=== PATIENT | male | born 1975 | race African-American/Black ===

== ENCOUNTER 2017-12-09 04:24 | Emergency (ER) | payer SELFPAY ==
[~2017-12-09] VITALS: Ht 182.9 cm; Wt 140.3 kg
[~2017-12-09 04:24] MED LIST: SULF1TAB47 PO; Z.0.NO CURRENT MEDS
[2017-12-09 04:26] VITALS: BP 150/106; PULSE 91; RESP 16; TEMP 98.5; O2SAT 97
--- NOTE | 2017-12-09 05:33 | PD ---
HPI Chief Complaint: Pain: Acute or Chronic Time Seen by Provider: 05:31 Travel History International Travel<30 days: No Contact w/Intl Traveler<30days: No Traveled to known affect area: No History of Present Illness HPI 42-year-old male presents to the emergency department for a few days of right testicular swelling. Patient denies scrotal edema. Patient denies trauma. Patient's had no fever chills. Patient does not report marked tenderness to the area but intermittently has experienced 9/10 pain. Patient states he does do repetitive lifting at his place of work but did not does not identify specific injury. Patient's had no nausea no vomiting and no abdominal pain. Patient also denies dysuria frequency urgency or penile discharge. PFSH Past Medical History Medical History: Denies Significant Hx Arthritis: No Asthma: No Autoimmune Disease: No Blood Disorders: No Anxiety: No Depression: No Heart Rhythm Problems: No Cancer: No Cardiovascular Problems: No High Cholesterol: No Chemotherapy: No Chest Pain: No Congestive Heart Failure: No COPD: No Cerebrovascular Accident: No Diabetes: No Diminished Hearing: No Endocrine: No GERD: No Glaucoma: No Genitourinary: No Headaches: No Hepatitis: No Hiatal Hernia: No Hypertension: No Immune Disorder: No Kidney Stones: No Musculoskeletal: No Neurologic: No Psychiatric: No Respiratory: No Myocardial Infarction: No Radiation Therapy: No Renal Failure: No Seizures: No Sickle Cell Disease: No Sleep Apnea: No Thyroid Disease: No Ulcer: No Past Surgical History Abdominal Surgery: No AICD: No Appendectomy: Yes Cardiac Surgery: No Ear Surgery: No Endocrine Surgery: No Eye Surgery: No Genitourinary Surgery: No Gynecologic Surgery: No Joint Replacement: No Oral Surgery: No Pacemaker: No Thoracic Surgery: No Social History Alcohol Use: Yes (FIFTH OF ALCOHOL PER WEEK) Tobacco Use: Yes (1 PPD) Substance Use: No Allergies-Medications (Allergen,Severity, Reaction): Coded Allergies: No Known Allergies (Verified Allergy, Mild, 12/09/17) Reported Meds & Prescriptions Reported Meds & Active Scripts Active Ibuprofen 600 Mg Tab 600 Mg PO Q8HR PRN 10 Days Physical Exam Narrative GENERAL: Well-developed well-nourished male in no acute distress no respiratory distress SKIN: Warm and dry. HEAD: Normocephalic. EYES: No scleral icterus. No injection or drainage. NECK: Supple, trachea midline. No JVD or lymphadenopathy. CARDIOVASCULAR: Regular rate and rhythm without murmurs, gallops, or rubs. RESPIRATORY: Breath sounds equal bilaterally. No accessory muscle use. GASTROINTESTINAL: Abdomen soft, non-tender, nondistended. : Bilaterally descended testicles with prominent scrotum right testicle palpable but appears slightly enlarged no discernible hernia on inguinal exam, no penile discharge. MUSCULOSKELETAL: No cyanosis, or edema. BACK: Nontender without obvious deformity. No CVA tenderness. Data Data Last Documented VS Vital Signs Date Time Temp Pulse Resp B/P (MAP) Pulse Ox O2 Delivery O2 Flow Rate FiO2 12/09/17 10:10 12/09/17 08:51 67 17 98 Room Air 12/09/17 04:26 98.5 Orders Orders Basic Metabolic Panel (Bmp) (12/09/17 05:31) Complete Blood Count With Diff (12/09/17 05:31) Ua Includes Microscopic (12/09/17 05:31) Us Testicles W Doppler (12/09/17 05:31) Iv Access Insert/Monitor (12/09/17 05:31) Ketorolac Inj (Toradol Inj) (12/09/17 05:45) Ondansetron Inj (Zofran Inj) (12/09/17 05:45) Sodium Chloride 0.9% Flush (Ns Flush) (12/09/17 05:45) Electrocardiogram (12/09/17 ) Ed Discharge Order (12/09/17 09:25) Ibuprofen (Motrin) (12/09/17 10:00) Labs Laboratory Tests Test 12/09/17 05:40 12/09/17 05:50 12/09/17 06:00 Blood Urea Nitrogen 10 MG/DL Creatinine 0.79 MG/DL Random Glucose 97 MG/DL Calcium Level 8.4 MG/DL Sodium Level 137 MEQ/L Potassium Level 5.4 MEQ/L Chloride Level 108 MEQ/L Carbon Dioxide Level 24.3 MEQ/L Anion Gap 5 MEQ/L Estimat Glomerular Filtration Rate 129 ML/MIN Urine Color YELLOW Urine Turbidity CLEAR Urine pH 5.5 Urine Specific [place] 1.016 Urine Protein NEG mg/dL Urine Glucose (UA) NEG mg/dL Urine Ketones NEG mg/dL Urine Occult Blood TRACE Urine Nitrite NEG Urine Bilirubin NEG Urine Urobilinogen LESS THAN 2.0 MG/DL Urine Leukocyte Esterase NEG Urine RBC 3 /hpf Urine WBC 3 /hpf Urine Mucus FEW /lpf White Blood Count 7.4 TH/MM3 Red Blood Count 5.51 MIL/MM3 Hemoglobin 15.2 GM/DL Hematocrit 43.5 % Mean Corpuscular Volume 79.0 FL Mean Corpuscular Hemoglobin 27.6 PG Mean Corpuscular Hemoglobin Concent 35.0 % Red Cell Distribution Width 14.8 % Platelet Count 253 TH/MM3 Mean Platelet Volume 8.0 FL Neutrophils (%) (Auto) 62.7 % Lymphocytes (%) (Auto) 23.2 % Monocytes (%) (Auto) 11.1 % Eosinophils (%) (Auto) 2.6 % Basophils (%) (Auto) 0.4 % Neutrophils # (Auto) 4.6 TH/MM3 Lymphocytes # (Auto) 1.7 TH/MM3 Monocytes # (Auto) 0.8 TH/MM3 Eosinophils # (Auto) 0.2 TH/MM3 Basophils # (Auto) 0.0 TH/MM3 CBC Comment DIFF FINAL Differential Comment MDM Medical Decision Making Medical Screen Exam Complete: Yes Emergency Medical Condition: Yes Medical Record Reviewed: Yes Differential Diagnosis Testicular mass, scrotal mass, epididymoorchitis, hydrocele, varicocele, torsion , hernia Narrative Course Specimens collected for urinalysis and testicular ultrasound ordered Patient waiting for ultrasound with on-call oral tech reportedly to arrival at 7 AM At 7 AM care signed over to Dr. Hackett Scripts Ibuprofen (Ibuprofen) 600 Mg Tab 600 MG PO Q8HR Y for PAIN SCALE 6 TO 10 for 10 Days, TAB 0 Refills Prov: Bandar Jarvis MD 12/09/17 Sonia Leblanc MD Dec 09, 2017 05:33
[2017-12-09] MEDS ORDERED: ONDANSETRON HCL 4 MG/2 ML VIAL IVP ONE (05:45)
[2017-12-09] MEDS ORDERED: KETOROLAC TROMETHAMINE 30 MG/ML (IVP) VIAL IVP ONE (05:45)
[2017-12-09] MEDS ORDERED: SODIUM CHLORIDE 0.9% FLUSH 10 ML FLUSH IVF PRN (05:45)
[2017-12-09 06:18] LABS: AUTOMATED NEUTROPHIL # 4.6 TH/MM3 (1.8-7.7); BASOPHIL % 0.4 % (0.0-2.0); EOSINOPHIL # 0.2 TH/MM3 (0-0.4); EOSINOPHIL % 2.6 % (0.0-4.0); HEMATOCRIT 43.5 % (39.0-51.0); HEMOGLOBIN 15.2 GM/DL (13.0-17.0); LYMPH % 23.2 % (9.0-44.0); LYMPHOCYTE # 1.7 TH/MM3 (1.0-4.8); MEAN CORPUSCULAR HEMOGLOBIN 27.6 PG (27.0-34.0); MONO % 11.1 % (0.0-8.0); MONOCYTE # 0.8 TH/MM3 (0-0.9); NEUT % 62.7 % (16.0-70.0); PLATELET COUNT 253 TH/MM3 (150-450); RED BLOOD COUNT 5.51 MIL/MM3 (4.50-5.90); RED CELL DISTRIBUTION WIDTH 14.8 % (11.6-17.2); WHITE BLOOD COUNT 7.4 TH/MM3 (4.0-11.0)
[2017-12-09 06:50] LABS: BILIRUBIN, URINE NEG (NEG); BLOOD, URINE TRACE (NEG); GLUCOSE,URINE NEG (NEG); KETONE, URINE NEG (NEG); MUCUS URINE FEW /lpf (OCC); NITRITE,URINE NEG (NEG); PH, URINE 5.5 (5.0-8.5); URINE COLOR YELLOW (YELLW/STRAW); URINE LEUKOCYTE ESTERASE NEG (NEG)
[2017-12-09 07:19] LABS: BICARBONATE 24.3 MEQ/L (21.0-32.0); CALCIUM 8.4 MG/DL (8.5-10.1); CREATININE 0.79 MG/DL (0.60-1.30)
--- NOTE | 2017-12-09 08:36 | RADRPT ---
EXAM DATE/TIME: 12/09/2017 07:38 [facility] COMPARISON: No previous studies available for comparison. INDICATIONS : Right testicle pain and swelling. MEDICAL HISTORY : Right testicle pain and swelling. SURGICAL HISTORY : Appendectomy. ENCOUNTER: Initial ACUITY: 2 days PAIN SCORE: 2/10 LOCATION: Bilateral scrotum. MEASUREMENTS: RIGHT TESTICLE: 3.8 x 2.9 x 2.7cm LEFT TESTICLE: 3.4 x 2.3 x 2.1cm FINDINGS: RIGHT TESTICLE: Homogeneous echotexture without intra or extratesticular mass. Blood flow is symmetric and within no rmal limits. Large right hydrocele. Epididymis is within normal limits. There is some increased color Doppler flow in the right inguinal canal region that may represent inflammatory change or a small va ricocele. LEFT TESTICLE: Homogeneous echotexture without intra or extratesticular mass. Blood flow is symmetric and within no rmal limits. Moderate-sized left hydrocele. Epididymis is within normal limits. SCROTUM: Within normal limits. CONCLUSION: 1. Testicles within normal limits. 2. Large right hydrocele and moderate sized left hydrocele. 3. Nonspecific mildly increased color Doppler flow in the right inguinal canal. Pool Connolly MD on December 09, 2017 at 8:30 Board Certified Radiologist. This report was verified electronically.
[2017-12-09 08:51] VITALS: BP 141/101; PULSE 67; RESP 17; O2SAT 98
--- NOTE | 2017-12-09 09:12 | PD ---
Data Data Last Documented VS Vital Signs Date Time Temp Pulse Resp B/P (MAP) Pulse Ox O2 Delivery O2 Flow Rate FiO2 12/09/17 08:51 67 17 141/101 (114) 98 Room Air 12/09/17 04:26 98.5 Orders Orders Basic Metabolic Panel (Bmp) (12/09/17 05:31) Complete Blood Count With Diff (12/09/17 05:31) Ua Includes Microscopic (12/09/17 05:31) Us Testicles W Doppler (12/09/17 05:31) Iv Access Insert/Monitor (12/09/17 05:31) Ketorolac Inj (Toradol Inj) (12/09/17 05:45) Ondansetron Inj (Zofran Inj) (12/09/17 05:45) Sodium Chloride 0.9% Flush (Ns Flush) (12/09/17 05:45) Electrocardiogram (12/09/17 ) Ed Discharge Order (12/09/17 09:25) Labs Laboratory Tests Test 12/09/17 05:40 12/09/17 05:50 12/09/17 06:00 Blood Urea Nitrogen 10 MG/DL Creatinine 0.79 MG/DL Random Glucose 97 MG/DL Calcium Level 8.4 MG/DL Sodium Level 137 MEQ/L Potassium Level 5.4 MEQ/L Chloride Level 108 MEQ/L Carbon Dioxide Level 24.3 MEQ/L Anion Gap 5 MEQ/L Estimat Glomerular Filtration Rate 129 ML/MIN Urine Color YELLOW Urine Turbidity CLEAR Urine pH 5.5 Urine Specific [place] 1.016 Urine Protein NEG mg/dL Urine Glucose (UA) NEG mg/dL Urine Ketones NEG mg/dL Urine Occult Blood TRACE Urine Nitrite NEG Urine Bilirubin NEG Urine Urobilinogen LESS THAN 2.0 MG/DL Urine Leukocyte Esterase NEG Urine RBC 3 /hpf Urine WBC 3 /hpf Urine Mucus FEW /lpf White Blood Count 7.4 TH/MM3 Red Blood Count 5.51 MIL/MM3 Hemoglobin 15.2 GM/DL Hematocrit 43.5 % Mean Corpuscular Volume 79.0 FL Mean Corpuscular Hemoglobin 27.6 PG Mean Corpuscular Hemoglobin Concent 35.0 % Red Cell Distribution Width 14.8 % Platelet Count 253 TH/MM3 Mean Platelet Volume 8.0 FL Neutrophils (%) (Auto) 62.7 % Lymphocytes (%) (Auto) 23.2 % Monocytes (%) (Auto) 11.1 % Eosinophils (%) (Auto) 2.6 % Basophils (%) (Auto) 0.4 % Neutrophils # (Auto) 4.6 TH/MM3 Lymphocytes # (Auto) 1.7 TH/MM3 Monocytes # (Auto) 0.8 TH/MM3 Eosinophils # (Auto) 0.2 TH/MM3 Basophils # (Auto) 0.0 TH/MM3 CBC Comment DIFF FINAL Differential Comment MDM Medical Record Reviewed: Yes Supervised Visit with CARLYN: Yes Narrative Course Please refer to Dr Leblanc's note EKG shows no hyperkalemic change Elevated K+ likely hemolysis CBC & BMP Diagram 12/09/17 05:40 Calcium Level 8.4 L 12/09/17 06:00 Urinalysis shows no UTI The ultrasound reveals a hydrocele Last 24 hours Impressions Scrotum Ultrasound 12/09/17 0531 Signed Impressions: Service Date/Time: Saturday, December 09, 2017 07:38 - CONCLUSION: 1. Testicles within normal limits. 2. Large right hydrocele and moderate sized left hydrocele. 3. Nonspecific mildly increased color Doppler flow in the right inguinal canal. Pool Connolly MD Treatment options discussed as well as follow-up plans. Diagnosis Primary Impression: Hydrocele in adult Additional Impression: Hyperkalemia Referrals: Vahe Wheeler MD 2 days Med/Other Pt SpecificInfo: Prescription(s) given Scripts Ibuprofen (Ibuprofen) 600 Mg Tab 600 MG PO Q8HR Y for PAIN SCALE 6 TO 10 for 10 Days, TAB 0 Refills Prov: Bandar Jarvis MD 12/09/17 Disposition: 01 DISCHARGE HOME Condition: Stable Bandar Jarvis MD Dec 09, 2017 09:12
[2017-12-09] MEDS ORDERED: IBUP-232 PO (09:28)
[2017-12-09] MEDS ORDERED: IBUPROFEN 600 MG TAB PO ONE (10:00)
--- NOTE | 2017-12-10 15:38 | EKG ---
Date Performed: 12/09/2017 Time Performed: 09:33:25 PTAGE: 42 years EKG: Sinus rhythm NORMAL ECG NO PREVIOUS TRACING DOCTOR: Yvan Beltran Interpretating Date/Time 12/10/2017 15:36:48
== END 2017-12-09 10:14 | disposition home or self-care (01) ==
LOC: NEPC 04:24
DX: N43.3 Hydrocele, unspecified (principal); E87.5 Hyperkalemia; F17.200 Nicotine dependence, unspecified, uncomplicated
CPT/HCPCS: 76870; 80048; 81001; 85025; 93005; 93975; 96374; 96375; 99285; J1885; J2405